=== PATIENT | female | born 1980 | race African-American/Black ===

== ENCOUNTER 2021-01-31 16:20 | Emergency (ER) | payer OTHER ==
[2021-01-31 17:20] LABS: BASOPHILS % (AUTO) 0.5 %; EOSINOPHILS # (AUTO) 0.1 10^3/uL (0.0-0.7); EOSINOPHILS % (AUTO) 2.4 %; HCT - HEMATOCRIT 39.8 % (37.0-47.0); HGB - HEMOGLOBIN 13.1 g/dL (12.0-16.0); LYMPHOCYTES % (AUTO) 34.4 %; MEAN CORPUSCULAR HEMOGLOBIN 29.8 pg (27.0-31.0); MEAN CORPUSCULAR HGB CONC 32.9 g/dL (32.0-36.0); MEAN CORPUSCULAR VOLUME 90.7 fL (81.0-99.0); MONOCYTES # (AUTO) 0.3 10^3/uL (0.0-1.0); MONOCYTES % (AUTO) 4.9 %; NEUTROPHILS # (AUTO) 3.4 10^3/uL (1.5-6.6); NEUTROPHILS % (AUTO) 57.5 %; PLT - PLATELET COUNT 316 10^3/uL (130-450); RED BLOOD COUNT 4.39 10^6/uL (4.20-5.40); RED CELL DISTRIBUTION WIDTH 12.2 % (12.0-15.0); WHITE BLOOD COUNT 5.9 x10^3/uL (4.8-10.8)
[2021-01-31 17:30] LABS: ALBUMIN 4.4 g/dL (3.2-5.5); ALBUMIN/GLOBULIN RATIO 1.4 (1.0-2.2); BILIRUBIN,TOTAL 0.4 mg/dL (0.2-1.0); CALCIUM 9.2 mg/dL (8.5-10.3); POTASSIUM 3.9 mmol/L (3.5-5.0); TOTAL PROTEIN 7.5 g/dL (6.7-8.2)
[2021-01-31] MEDS ORDERED: MORPHINE 2 MG/ML CARPUJECT IVP STA (17:49)
--- NOTE | 2021-01-31 17:50 | ED Physician Documentation ---
PD HPI ABD PAIN - Stated complaint Stated Complaint: NAVAL PAIN - Chief complaint Chief Complaint: Abd Pain - History obtained from History obtained from: Patient, Family - History of Present Illness Quality: Pain Location: Periumbilical Improved by: Laying still Worsened by: Palpation Associated symptoms: Nausea. No: Fever, Vomiting, Hematemesis, Diarrhea, Constipation Similar symptoms before: Diagnosis (umbilical hernia) Recently seen: Clinic - Additional information Additional information: 40-year-old female presents to the emergency department with periumbilical pain. She states that she had an umbilical hernia repaired 1 year ago at [facility]. She states over the past 4 days had increasing pain. She now feels a hard ball at the site as well. Worse with palpation. Worse with movement. Nothing makes it better. Some nausea but no vomiting. No diarrhea or constipation. Review of Systems Constitutional: denies: Fever Respiratory: denies: Cough GI: denies: Nausea, Vomiting, Constipation, Diarrhea : denies: Dysuria, Frequency, Now [facility] PD PAST MEDICAL HISTORY - Present Medications Home Medications: Ambulatory Orders Medication Instructions Recorded Confirmed HYDROcod/ACETAM 5/325 [[place] 5/325] 1 - 2 ea PO Q6H PRN #14 tablet 01/31/21 - Allergies Allergies/Adverse Reactions: Allergies Allergy/AdvReac Type Severity Reaction Status Date / Time No Known Drug Allergies Allergy Verified 01/31/21 16:40 PD ED PE NORMAL - Vitals Vital signs reviewed: Yes - General General: Alert and oriented X 3, No acute distress, Well developed/nourished - HEENT HEENT: Moist mucous membranes - Neck Neck: Supple, no meningeal sign - Cardiac Cardiac: RRR, Strong equal pulses - Respiratory Respiratory: No respiratory distress, Clear bilaterally - Abdomen Abdomen: Soft, Non tender, Non distended, Other (Small palpable periumbilical hernia, nonreducible. No skin changes.) - Derm Derm: Warm and dry - Neuro Neuro: Alert and oriented X 3 - Psych Psych: Normal mood, Normal affect Results - Vitals Vitals: Vital Signs - 24 hr 01/31/21 01/31/21 01/31/21 16:33 18:39 19:13 Temperature 36.3 C L Heart Rate 78 63 78 Respiratory 15 19 18 Rate Blood Pressure 113/69 123/73 115/69 O2 Saturation 99 99 98 Oxygen O2 Source Room air - Labs Labs: Laboratory Tests 01/31/21 01/31/21 01/31/21 17:10 17:10 18:03 WBC 5.9 RBC 4.39 Hgb 13.1 Hct 39.8 MCV 90.7 MCH 29.8 MCHC 32.9 RDW 12.2 Plt Count 316 MPV 9.0 Neut # (Auto) 3.4 Lymph # (Auto) 2.0 Wells # (Auto) 0.3 Eos # (Auto) 0.1 Baso # (Auto) 0.0 Absolute Nucleated RBC 0.00 Nucleated RBC % 0.0 Sodium 140 Potassium 3.9 Chloride 106 Carbon Dioxide 27 Anion Gap 7.0 BUN 13 Creatinine 1.0 Estimated GFR (MDRD) 75 L Glucose 82 Calcium 9.2 Total Bilirubin 0.4 AST 19 ALT 15 Alkaline Phosphatase 47 Total Protein 7.5 Albumin 4.4 Globulin 3.1 Albumin/Globulin Ratio 1.4 Lipase 44 Urine Color YELLOW Urine Clarity CLOUDY Urine pH 5.5 Ur Specific [place] >=1.030 H Urine Protein NEGATIVE Urine Glucose (UA) NEGATIVE Urine Ketones NEGATIVE Urine Occult Blood LARGE H Urine Nitrite NEGATIVE Urine Bilirubin NEGATIVE Urine Urobilinogen 0.2 (NORMAL) Ur Leukocyte Esterase NEGATIVE Urine RBC 6-10 H Urine WBC 4-5 Ur Squamous Epith Cells MANY Squamous H Amorphous Sediment Few Urine Bacteria Few Ur Microscopic Review INDICATED Urine Culture Comments NOT INDICATED Urine HCG, Qual 01/31/21 18:03 WBC RBC Hgb Hct MCV MCH MCHC RDW Plt Count MPV Neut # (Auto) Lymph # (Auto) Wells # (Auto) Eos # (Auto) Baso # (Auto) Absolute Nucleated RBC Nucleated RBC % Sodium Potassium Chloride Carbon Dioxide Anion Gap BUN Creatinine Estimated GFR (MDRD) Glucose Calcium Total Bilirubin AST ALT Alkaline Phosphatase Total Protein Albumin Globulin Albumin/Globulin Ratio Lipase Urine Color Urine Clarity Urine pH Ur Specific [place] Urine Protein Urine Glucose (UA) Urine Ketones Urine Occult Blood Urine Nitrite Urine Bilirubin Urine Urobilinogen Ur Leukocyte Esterase Urine RBC Urine WBC Ur Squamous Epith Cells Amorphous Sediment Urine Bacteria Ur Microscopic Review Urine Culture Comments Urine HCG, Qual NEGATIVE - Rads (name of study) abd/pelvis CT Radiology: Prelim report reviewed, EMP read contemporaneously, See rad report (1. Significant stool consistent with constipation. No obstruction. ) PD MEDICAL DECISION MAKING - ED course Complexity details: reviewed results, re-evaluated patient, considered differential, d/w patient, d/w family ED course: 40-year-old female with what appears to be a small umbilical hernia that is fat- containing. Does not contain any bowel or bowel obstruction. Will place on pain medication for home and have her follow-up with her original surgeon. Patient counseled regarding signs and symptoms for which I believe and urgent re-evaluation would be necessary. Patient with good understanding of and agreement to plan and is comfortable going home at this time This document was made in part using voice recognition software. While efforts are made to proofread this document, sound alike and grammatical errors may occur. Departure - Departure Disposition: Home, Self Care Clinical Impression: Umbilical hernia Qualifiers: Obstruction and gangrene presence: without obstruction or gangrene Qualified Code(s): K42.9 - Umbilical hernia without obstruction or gangrene Condition: Good Instructions: Hernia Follow-Up: HARPER ARMENTA MD [Primary Care Provider] - Prescriptions: HYDROcod/ACETAM 5/325 [[place] 5/325] 1 - 2 ea PO Q6H PRN #14 tablet PRN Reason: Pain Comments: Follow up with your doctor for further care. Your CT does not show any acute abnormalities tonight. Do not drink alcohol or drive while on narcotic pain medicine. Note that many narcotic pain relievers also contain tylenol/acetaminophen. Please ensure that your total dose of acetaminophen from all sources does not exceed 3 grams (3000mg) per day. You may constipated on this medication, take a stool softener such as "Colace" twice a day while you are on it. Also recommend a [id number] laxative such as senna or MiraLAX any day that you do not have a bowel movement. If you received narcotic pain medication in the emergency department, do not drive or operate machinery for the next 24 hours. Discharge Date/Time: 01/31/21 19:13
[2021-01-31] MEDS ORDERED: IOPAMIDOL-300 100 ML VIAL ONE (17:53)
[2021-01-31 18:07] LABS: BILIRUBIN,URINE NEGATIVE (NEGATIVE); GLUCOSE, URINE (UA) NEGATIVE (NEGATIVE); KETONES,URINE (UA) NEGATIVE (NEGATIVE); LEUKOCYTE ESTERASE, URINE NEGATIVE (NEGATIVE); NITRITE,URINE NEGATIVE (NEGATIVE); OCCULT BLOOD,URINE LARGE (NEGATIVE); PH,URINE 5.5 PH (5.0-7.5); PROTEIN,URINE NEGATIVE (NEGATIVE); UROBILINOGEN,URINE 0.2 (NORMAL) E.U./dL (NORMAL)
[2021-01-31 18:09] LABS: CLARITY,URINE CLOUDY (CLEAR)
[2021-01-31 18:10] LABS: HCG UR QUAL NEGATIVE
[2021-01-31 18:17] LABS: AMORPHOUS SEDIMENT,UR Few /LPF; BACTERIA,URINE Few /HPF (None Seen); SQUAMOUS EPITHELIAL CELL,UR MANY Squamous (<= Few)
[2021-01-31] MEDS ORDERED: IOPAMIDOL-300 100 ML VIAL IVP ONE (18:31)
--- NOTE | 2021-01-31 18:42 | CT Report ---
PROCEDURE: Abdomen/Pelvis W INDICATIONS: periumbilical pain, umbilical hernia repair 1 year CONTRAST: IV CONTRAST: Isovue 300 ml: 100 PO CONTRAST: *NO PO CONTRAST TECHNIQUE: After the administration of IV contrast, 5 mm thick sections acquired from the diaphragms to the symp hysis. 5 mm thick coronal and sagittal reformats were acquired. For radiation dose reduction, the f ollowing was used: automated exposure control, adjustment of mA and/or kV according to patient size. COMPARISON: None. FINDINGS: Image quality: Excellent. ABDOMEN: Lung bases: Lung bases are clear. Heart size is normal. Solid organs: Liver is mildly enlarged with steatosis. The spleen is normal. Gallbladder is unremark able Biliary system is non dilated. Pancreas enhances normally. No adrenal nodules. Kidneys demon strate normal size and enhancement, without hydronephrosis. Peritoneum and bowel: Bowel loops demonstrate normal wall thickness and caliber. No free fluid or a ir. Significant colonic stool is present without obstruction. Appendix is normal. Nodes and vessels: No retroperitoneal or mesenteric adenopathy by size criteria. Aorta and inferior vena cava are normal in size. Miscellaneous: No ventral hernias. PELVIS: Genitourinary: Bladder wall thickness is normal. Miscellaneous: No inguinal hernias or adenopathy. Bones: No suspicious bony lesions. No vertebral body compression fractures. IMPRESSION: 1. Significant stool consistent with constipation. No obstruction. Reviewed by: Yamila Ceja MD on 01/31/2021 6:41 PM PDT Approved by: Yamila Ceja MD on 01/31/2021 6:41 PM PDT Station ID: [id number]
[2021-01-31 19:17] VITALS: BP 115/69
== END 2021-01-31 19:13 | disposition home or self-care (01) ==
LOC: ED 16:20
DX: K42.9 Umbilical hernia without obstruction or gangrene (principal)
CPT/HCPCS: 36415; 74177; 80053; 81001; 81025; 83690; 85025; 96374; 99284; Q9967; 81003; 87086

== ENCOUNTER 2022-08-31 11:59 | Outpatient (CLI) | payer OTHER ==
--- NOTE | 2022-08-31 20:10 | XRAY Report ---
PROCEDURE: Wrist 3 View BILAT INDICATIONS: BILATERAL WRIST PX TECHNIQUE: 3 views of both wrists obtained. COMPARISON: None. FINDINGS: Bones: No fractures or dislocations. No suspicious bony lesions. Mild first CMC and STT joint dege nerative changes bilaterally. Soft tissues: No suspicious soft tissue calcifications. IMPRESSION: No acute osseous abnormality. If symptoms persist, follow-up radiographs and/or CT or MRI may be help ful for further evaluation. Reviewed by: Lucho Perales MD on 08/31/2022 8:08 PM [facility] Approved by: Lucho Perales MD on 08/31/2022 8:08 PM [facility] Station ID: [id number]
== END 2022-08-31 12:00 | disposition home or self-care (01) ==
LOC: DI.N 11:59
PROVIDERS: ATTEND Student in an Organized Health Care Education/Training Program
DX: M25.531 Pain in right wrist (principal); M25.532 Pain in left wrist

== ENCOUNTER 2022-10-03 12:57 | Outpatient (CLI) | payer OTHER ==
--- NOTE | 2022-10-03 18:01 | Ultrasound Report ---
PROCEDURE: Head or Neck Soft Tissue INDICATIONS: ENLARGED THYROID TECHNIQUE: Real-time scanning was performed of the thyroid gland, with image documentation. COMPARISON: None FINDINGS: Right: Thyroid lobe measures 5.1 x 1.7 x 1.4 cm, and is homogeneous in echotexture. Left: Thyroid lobe measures 5.0 x 1.5 x 1.6 cm, and is homogenous in echotexture. Isthmus: 4 mm thick. IMPRESSION: Normal thyroid gland without dominant nodule. ACR TI-RADS definitions and recommendations: TI-RADS 1 (benign): 0 points. FNA not needed. TI-RADS 2 (not suspicious): 2 points. FNA not needed. TI-RADS 3 (mildly suspicious): 3 points. "FNA if 2.5 cm or larger, follow up if 1.5 cm or larger (at 1, 3, and 5 years). TI-RADS 4 (moderately suspicious): 4-6 points. "FNA if 1.5 cm or larger, follow up if 1 cm or larger (at 1, 2, 3, and 5 years). TI-RADS 5 (highly suspicious): 7 points or more. "FNA if 1 cm or larger, follow up if 0.5 cm or larger (every year for 5 years). Reviewed by: Oralia Moss MD on 10/03/2022 6:00 PM PST Approved by: Oralia Moss MD on 10/03/2022 6:00 PM PST Station ID: [id number]
== END 2022-10-03 12:58 | disposition home or self-care (01) ==
LOC: DI 12:57
PROVIDERS: ATTEND Physician Assistant
DX: E04.9 Nontoxic goiter, unspecified (principal)

== ENCOUNTER 2023-04-08 11:40 | Outpatient (CLI) | payer OTHER ==
--- NOTE | 2023-04-08 12:53 | Ultrasound Report ---
PROCEDURE: Ext Limited Non Vascular INDICATIONS: IMPLANTABLE SUBDERMAL CONTRACEPTIVE SURVEILLANCE TECHNIQUE: Real-time scanning was performed of the left upper arm, with image documentation. COMPARISON: None. FINDINGS: Multiple grayscale and color Doppler images of the left upper arm were acquired for survei llance of location of subdermal contraceptive device. The device is noted approximately 0.5 cm deep t o the skin surface and approximately 3 inches from the axilla and 4 inches from the elbow. No abnorma l fluid collection seen. IMPRESSION: Subdermal location of contraceptive device is detailed above within the left upper arm. Reviewed by: Jareth Bacon MD on 04/08/2023 11:52 AM [facility] Approved by: Jareth Bacon MD on 04/08/2023 11:52 AM [facility] Station ID: [id number]
== END 2023-04-08 11:41 | disposition home or self-care (01) ==
LOC: DI 11:40
PROVIDERS: ATTEND Physician Assistant
DX: Z30.49 Encounter for surveillance of other contraceptives (principal)

== ENCOUNTER 2023-04-21 09:44 | Outpatient (CLI) | payer OTHER ==
--- NOTE | 2023-04-21 11:30 | Ultrasound Report ---
PROCEDURE: Abdomen Limited INDICATIONS: SOFT TISSUE MASS TECHNIQUE: Real-time focused scanning was performed of the abdominal wall in the regions of interest. COMPARISONS: CT abdomen pelvis 01/31/2021 FINDINGS: Within the right upper quadrant area of interest, there is a hyperechoic lesion with posterior shadow ing which limits evaluation. Within the umbilical area of interest, there is a possible 1.5 x 3.5 Centimeters hypoechoic area whic h may represent a possible defect. IMPRESSION: 1.There is a hyperechoic mass with posterior shadowing within the right upper quadrant, possibly a li carol. Evaluation is limited. 2.Possible residual defect within the umbilical area of interest. 3.Recommend CT of the abdomen and pelvis with contrast for further evaluation. Reviewed by: Grery Worley MD on 04/21/2023 11:28 AM PDT Approved by: Gerry Worley MD on 04/21/2023 11:28 AM PDT Station ID: [id number]
== END 2023-04-21 09:45 | disposition home or self-care (01) ==
LOC: DI 09:44
PROVIDERS: ATTEND Physician Assistant
DX: R19.00 Intra-abdominal and pelvic swelling, mass and lump, unspecified site (principal)

== ENCOUNTER 2023-05-16 11:06 | Outpatient (CLI) | payer OTHER ==
[2023-05-16] MEDS ORDERED: BARIUM SULFATE 450 ML BOTTLE PO ONE (16:39)
[2023-05-16] MEDS ORDERED: iohexoL-300 100 ML VIAL IVP ONE (16:40)
--- NOTE | 2023-05-17 13:33 | CT Report ---
PROCEDURE: ABDOMEN/PELVIS W INDICATIONS: SOFT TISSUE MASS CONTRAST: Omni [id number] TECHNIQUE: After the administration of oral and intravenous contrast, 5 mm thick sections acquired from the diap hragms to the symphysis. 5 mm thick coronal and sagittal reformats were acquired. For radiation dos e reduction, the following was used: automated exposure control, adjustment of mA and/or kV accordin g to patient size. COMPARISON: Abdominal ultrasound 04/21/2023, CT abdomen pelvis 01/31/2021 FINDINGS: Image quality: Excellent. Lung bases and heart: Mild dependent atelectasis. Liver: 2 punctate hypodensities in the right hepatic lobe (2/20) are too small to characterize, possi ble cysts versus hemangiomas. Gallbladder and biliary tree: No radiopaque stones or wall thickening. No biliary dilation. Spleen: No splenomegaly. Pancreas: No pancreatic ductal dilation. Adrenals: No adrenal nodule. Kidneys and ureters: No hydronephrosis. No renal cystic lesion which requires follow up. No solid mas s. Bowel and peritoneum: No bowel distension. No pathologic free fluid. Lymph nodes: No central or retroperitoneal adenopathy. Vessels: No infrarenal aortic aneurysm. PELVIS Reproductive organs: Unremarkable. Bladder: No abnormal wall thickening, accounting for underdistension. Pelvic lymph nodes: No pelvic adenopathy by size criteria. Bones: No acute or suspicious osseous abnormality. Other: No significant ventral or inguinal hernia. Similar soft tissue thickening in the umbilicus, un changed since 01/31/2021. IMPRESSION: No acute findings in the abdomen or pelvis. Stable soft tissue thickening in the umbilicus since 01/31/2021 Reviewed by: Jordyn De La Rosa MD on 05/17/2023 1:32 PM PDT Approved by: Jordyn De La Rosa MD on 05/17/2023 1:32 PM PDT Station ID: [id number]
== END 2023-05-16 11:07 | disposition home or self-care (01) ==
LOC: DI 11:06
PROVIDERS: ATTEND Physician Assistant
DX: R19.09 Other intra-abdominal and pelvic swelling, mass and lump (principal)
CPT/HCPCS: 74177; A9270; Q9967

== ENCOUNTER 2023-09-28 12:42 | Day surgery (SDC) | payer OTHER ==
[~2023-09-28 12:42] MED LIST: BUPIVACAINE 0.25% PF 10 ML VIAL ONE; BUPIVACAINE 0.25% PF 30 ML VIAL ONE; LIDOCAINE 1%-EPI 1:100000 20 ML MDV ONE
[2023-09-28] MEDS ORDERED: LACTATED RINGERS 1,000 ML IV ONE ×2 (13:02→15:49)
[2023-09-28] MEDS ORDERED: MIDAZOLAM 2 MG/2 ML VIAL ONE (14:35)
[2023-09-28] MEDS ORDERED: fentaNYL 100 MCG/2 ML VIAL ONE (14:35)
[2023-09-28] MEDS ORDERED: PROPOFOL 200 MG/20 ML VIAL IVP ONE (14:36)
[2023-09-28] MEDS ORDERED: METOCLOPRAMIDE 10 MG/2 ML VIAL IVP PRN (14:56)
[2023-09-28] MEDS ORDERED: NALOXONE 0.4 MG/ML VIAL IVP PRN (14:56)
[2023-09-28] MEDS ORDERED: ONDANSETRON 4 MG/2 ML VIAL IVP PRN (14:56)
[2023-09-28] MEDS ORDERED: ePHEDrine 50 MG/ML VIAL IVP PRN (14:56)
[2023-09-28] MEDS ORDERED: HYDROmorphone 0.5 MG/0.5 ML SYRINGE IVP PRN (14:56)
[2023-09-28] MEDS ORDERED: MORPHINE 2 MG/ML CARPUJECT IVP PRN (14:56)
[2023-09-28] MEDS ORDERED: ATROPINE ABBOJECT 1 MG/10 ML SYRINGE IVP PRN (14:56)
[2023-09-28] MEDS ORDERED: fentaNYL 100 MCG/2 ML VIAL IVP PRN (14:56)
--- NOTE | 2023-09-28 14:56 | ANESTHESIA ---
Pre-Anesthesia VS, & Labs - Diagnosis desires removal of nexplanon - Procedure removal L UE nexplanon Vital Signs: Temp Pulse Resp BP Pulse Ox O2 Flow Rate 36.6 C 63 18 125/79 98 0 09/28/23 13:04 09/28/23 13:04 09/28/23 13:04 09/28/23 13:04 09/28/23 13:04 09/28/23 13:04 Height: 5 ft 4 in Weight (kg): 82.8 kg Body Mass Index: 31.3 BMI Classification: Obese - NPO >8 hours - Is Patient ?: Waiver signed - Lab Results Lab results reviewed: Yes Home Medications and Allergies Home Medications: Ambulatory Orders No Known Home Medications 09/25/23 No Known Home Medications 09/25/23 Allergies/Adverse Reactions: Allergies Allergy/AdvReac Type Severity Reaction Status Date / Time No Known Drug Allergies Allergy Verified 09/28/23 13:16 Anes History & Medical History - Anesthetic History Anesthesia Complications: reports: No previous complications Family history of Anesthesia Complications: Denies Family history of Malignant Hyperthermia: Denies - Medical History Cardiovascular: reports: None Pulmonary: reports: None Gastrointestinal: reports: None Urinary: reports: None Musculoskeletal: reports: None Endocrine/Autoimmune: reports: None Skin: reports: None Smoking Status: Never smoker - Surgical History General: reports: Other Eyes Ears Nose Throat (EENT): reports: Tonsil/Adenoidectomy Gynecologic: reports: section Exam General: Alert, Oriented x3, Cooperative Dental: WNL Mouth Openin Fingerbreadth Neck Mobility: Normal Mallampati classification: II Thyromental Distance: 4-6 cm Respiratory: Lungs clear, Normal breath sounds, No respiratory distress Cardiovascular: Regular rate Neurological: Normal speech Mental/Cognitive Status: Alert/Oriented X3, Normal for patient Cognitive Status: Within normal limits Plan Anesthesia Type: General Consent for Procedure(s) Verified and Reviewed: Yes Code Status: Attempt Resuscitation ASA classification: 2-Mild systemic disease Is this case an emergency?: No
--- NOTE | 2023-09-28 14:58 | HISTORY & PHYSICAL EXAMINATION ---
Chief Complaint - Chief Complaint Chief Complaint: unwanted nexplanon History of Present Illness - History Obtained From Records Reviewed: yes History obtained from: deep unwanted nexplanon Exam Limitations: not palapable - History of Present Illness HPI Comment/Other: as above. History - Past Medical History Cardiovascular: reports: None Respiratory: reports: None Endocrine/Autoimmune: reports: None GI: reports: None : reports: None HEENT: reports: Chronic vision loss Psych: reports: None Musculoskeletal: reports: None Derm: reports: None MRSA Hx?: No - Past Surgical History General: reports: Other /[employer]: reports: section Meds/Allgy - Home Medications Home Medications: Ambulatory Orders Medication Instructions Recorded Confirmed No Known Home Medications 09/25/23 09/25/23 - Allergies Allergies/Adverse Reactions: Allergies Allergy/AdvReac Type Severity Reaction Status Date / Time No Known Drug Allergies Allergy Verified 09/28/23 13:16 Review of Systems - Other Findings Other Findings: 10 pt ros as above otherwise unremarkable Exam - Vital Signs Reviewed Vital Signs: Yes Vital Signs: Vital Signs x48h Temp Pulse Resp BP Pulse Ox O2 Flow Rate 09/28/23 13:04 36.6 C 63 18 125/79 98 0 - Physical Exam General Appearance: positive: Alert Eyes Bilateral: positive: PERRL, EOMI ENT: positive: No signs of dehydration Neck: positive: Trachea midline Respiratory: positive: No respiratory distress Cardiovascular: positive: Regular rate & rhythm Skin: positive: Other (left upper arm marked per radiology for location) Neurologic/Psychiatric: positive: Oriented x3 Conclusion/Plan - Problem List (1) Foreign body (FB) in soft tissue Conclusion/Plan: deep unwanted nexplanon. plan excision. parq held and consent obtained
[2023-09-28] MEDS ORDERED: LACTATED RINGERS 1,000 ML IV SCH (15:00)
[2023-09-28] MEDS ORDERED: LIDOCAINE-PF 2% 10 ML AMP SUBQ ONE (15:04)
[2023-09-28] MEDS ORDERED: ONDANSETRON 4 MG/2 ML VIAL ONE (15:11)
[2023-09-28] MEDS ORDERED: DEXAMETHASONE 4 MG/ML VIAL ONE (15:11)
[2023-09-28] MEDS ORDERED: BUPIVACAINE 0.25% PF 30 ML VIAL SUBQ ONE ×2 (15:27)
[2023-09-28] MEDS ORDERED: HYDROcod/ACETAM 5/325 MG TABLET PO PRN (15:43)
--- NOTE | 2023-09-28 15:50 | OPERATIVE REPORT ---
Operative Report - General Procedure Date: 09/28/23 Planned Procedure: excision left upper arm nexplanon Pre-Op Diagnosis: unwanted nexplanon Procedure Performed: excision/ removal left upper arm nexplanon Post Op Diagnosis: same - Procedure Note Primary Surgeon: edi houston Anesthesia Technique: General LMA, Local Pathology: nexplanon removed. not sent Estimated Blood Loss (mL): 0 Indications: as above Findings: removed intact Complications: none - Other Other Information/Narrative: The patient was prepped identified brought to the operating room and placed in supine position. Laryngeal mask anesthesia was induced. Left arm was carefully positioned upwards and outwards. Pillow was placed beneath her wrist. She was prepped and draped in a sterile fashion. Antibiotics were not given. She has a deep not palpable Nexplanon left upper arm. No scar was visible. Area was marked by radiology previously under ultrasound. A vertical 3 cm incision was made in the area marked. Dissection proceeded approximately 1 cm deep through the subcutaneous tissue. The Nexplanon was identified and removed intact. Hemostasis was assured. Subcutaneous tissue was reapproximated with interrupted 3-0 Vicryl suture. Buried interrupted subdermal 3-0 Vicryl sutures were then placed. Skin was closed with a running 4-0 Monocryl subcuticular suture. Steri-Strips and dressing were applied. She tolerated the procedure well was awakened and brought to recovery in good condition.
[2023-09-28 16:37] VITALS: BP 132/81; O2SAT 100
--- NOTE | 2023-09-28 18:30 | Ultrasound Report ---
PROCEDURE: Extremity Soft Tissue Limited INDICATIONS: please kailash area of Nexplanon TECHNIQUE: Real-time scanning was performed of the left medial arm, with image documentation. COMPARISON: None. FINDINGS: Left medial arm and imaging of clinical concern is a subcutaneous linear implant measuring 0.4 cm in length. This is located 4 cm from the axilla and 5 cm from the elbow joint. This is located 4 mm deep to the skin. IMPRESSION: Nexplanon implant in the subcutaneous medial left upper arm is localized. Reviewed by: Esau Mckeon MD on 09/28/2023 6:29 PM PST Approved by: Esau Mckeon MD on 09/28/2023 6:29 PM PST Station ID: [id number]
== END 2023-09-28 12:43 | disposition home or self-care (01) ==
LOC: SDS 12:42
PROVIDERS: ATTEND Surgery
PROC: 0JPV0HZ Removal of Contraceptive Device from Upper Extremity Subcutaneous Tissue and Fascia, Open Approach (ICD-10-PCS; principal; 2023-09-28 14:15)
DX: Z30.8 Encounter for other contraceptive management (principal); E66.9 Obesity, unspecified; Z68.31 Body mass index [BMI] 31.0-31.9, adult
CPT/HCPCS: 11976; 76882; J7120